=== PATIENT | female | born 2000 | race Asian ===

== ENCOUNTER 2020-01-06 16:19 | Emergency (ER) | payer OTHER | END 2020-01-06 18:27 | disposition home or self-care (01) | LOC: JVIRT 16:19 | DX: Z11.59 Encounter for screening for other viral diseases (principal) | CPT/HCPCS: C9803; G2012-GT; Q3014-GT; U0003 ==

== ENCOUNTER 2020-01-10 10:32 | Emergency (ER) | payer OTHER ==
--- NOTE | 2020-01-10 11:00 | TELE ---
HPI Do you have fever,cough or shortness of breath?: No - General Reason For Visit: COVID 19 TESTING History Source: Patient Exam Limitations: No Limitations - History of Present Illness Associated Symptoms: reports: denies symptoms 01/10/20 10:58 Patient requesting testing for covid 19 for upcoming travel to [facility] on January 13, 2020. Patient has no complaints including headache, fever, chills shortness of breath or chest pain. Patient was swabbed 3 days ago and did not understand that it had to be 72 hours prior to travel. Patient denies medical history or recent illness Past History - Travel History Traveled outside of the country in the last 30 days: No Close contact w/someone who was outside of country & ill: No - Psycho-Social/Smoking History Patient Lives Alone: No Lives with/in: parents Review of Systems - Review of Systems Able to Perform ROS?: Yes Limited Tamaz[place] proficient: No Constitutional: No: Symptoms Reported HEENTM: No: Symptoms Reported Respiratory: No: Symptoms reported Cardiac (ROS): No: Symptoms Reported ABD/GI: No: Symptoms Reported : No: Symptoms Reported Musculoskeletal: No: Symptoms Reported Integumentary: No: Symptoms Reported Neurological: No: Symptoms reported Endocrine: No: Symptoms Reported Hematologic/Lymphatic: No: Symptoms Reported *Physical Exam - Physical Exam General Appearance: Yes: Nourished, Appropriately Dressed. No: Apparent Distress HEENT: negative: Pale Conjunctivae Neck: positive: Decreased range of motion Respiratory/Chest: negative: Respiratory Distress Gastrointestinal/Abdominal: negative: Distended Integumentary: positive: Normal Color, Warm, Moist Neurologic: positive: Motor Strength 5/5 (ambulatory) - Medical Decision Making 01/10/20 11:00 CC: Pt requesting covid testing 72 hrs prior to travel to [facility] Exam: appears healthy overall Plan: testing ordered Discharge Diagnosis at time of Disposition: Counseled about COVID-19 virus infection - Referrals - Patient Instructions - Discharge Disposition: HOME Condition at time of Disposition: Good
== END 2020-01-10 11:01 | disposition home or self-care (01) ==
LOC: JVIRT 10:32
DX: Z11.59 Encounter for screening for other viral diseases (principal)
CPT/HCPCS: Q3014-GT; U0003